=== PATIENT | male | born 1970 | race Caucasian/White ===

== ENCOUNTER → 2020-12-26 | Outpatient (CLI) | payer OTHER ==
[~2020-12-26] MED LIST: ASPI1CHW13 PO; CARV3.1240 PO; DIGO0.2566 PO; FURO1TAB33 PO; HYDR-1421 PO; IBUP-1174 PO; SPIR25TA PO
== END | disposition home or self-care (01) ==
LOC: XYW 08:41
PROVIDERS: ATTEND Internal Medicine
DX: I08.8 Other rheumatic multiple valve diseases (principal); R00.2 Palpitations
CPT/HCPCS: 93306